=== PATIENT | female | born 1990 ===

== ENCOUNTER 2024-02-23 05:10 | Day surgery (SDC) | payer OTHER ==
[2024-02-15 15:00] VITALS: BP 109/75
[~2024-02-23] VITALS: Ht 154.9 cm; Wt 74.8 kg
[~2024-02-23 05:10] MED LIST: MIRALAX17 GM PO; MULTIPLE VITAM1 EAC2 PO; PROBIOTIC250 MG PO
[2024-02-23] MEDS ORDERED: TRAM1TAB98 PO (09:37)
[2024-02-23] MEDS ORDERED: NEURONTIN300 MG PO (09:37)
[2024-02-23] MEDS ORDERED: COLACE100 MG PO (09:38)
[2024-02-23] MEDS ORDERED: PIPERACILLIN/TAZOBACTAM SODIUM 3.375 GM VIAL IV ONE ×2 (10:30)
[2024-02-23] MEDS ORDERED: DIBUCAINE 30 GM TUBE RECTAL ONE (10:30)
[2024-02-23] MEDS ORDERED: LIDOCAINE HCL 1%/EPINEPHRINE 20ML VIAL IJ ONE (10:30)
[2024-02-23] MEDS ORDERED: BUPIVACAINE HCL 30 ML VIAL IJ ONE (10:30)
[2024-02-23] MEDS ORDERED: POVIDONE-IODINE 118 ML BOTT TOP ONE (10:30)
== END 2024-02-23 14:15 | disposition home or self-care (01) ==
LOC: CIR.AMB 05:10
PROVIDERS: ATTEND Surgery
DX: K60.3 Anal fistula (principal); K62.89 Other specified diseases of anus and rectum

== ENCOUNTER 2024-06-28 06:25 | Day surgery (SDC) | payer OTHER ==
[2024-06-21 14:01] VITALS: BP 118/80
[~2024-06-28] VITALS: Ht 154.9 cm; Wt 76.7 kg
[~2024-06-28 06:25] MED LIST changes: +COLACE100 MG PO; +NEURONTIN300 MG PO; +SPRINTEC 28 DA1 EACH PO; +TRAM1TAB98 PO
[2024-06-28] MEDS ORDERED: LIDOCAINE HCL 1%/EPINEPHRINE 20ML VIAL IJ ONE ×2 (10:33→16:34)
[2024-06-28] MEDS ORDERED: DIBUCAINE 30 GM TUBE ONE (10:33)
[2024-06-28] MEDS ORDERED: HEMOSTATIC MATRIX 1 KIT KIT TOP ONE (10:33)
[2024-06-28] MEDS ORDERED: POVIDONE-IODINE 118 ML BOTT TOP ONE (10:33)
[2024-06-28] MEDS ORDERED: BUPIVACAINE HCL/Mpf 0.5% 10ML VIAL ONE ×2 (10:33→16:33)
[2024-06-28] MEDS ORDERED: CEFTRIAXONE SODIUM 2,000 MG VIAL ONE (10:58)
[2024-06-28] MEDS ORDERED: METRONIDAZOLE/SODIUM CHLORIDE 500 MG/100 ML PIGGYBACK IV ONE (10:58)
[2024-06-28] MEDS ORDERED: COLACE100 MG PO (17:45)
[2024-06-28] MEDS ORDERED: TRAM1TAB98 PO (17:45)
[2024-06-28] MEDS ORDERED: NEURONTIN300 MG PO (17:45)
== END 2024-06-28 21:05 | disposition home or self-care (01) ==
LOC: CIR.AMB 06:25
PROVIDERS: ATTEND Surgery
DX: K60.30 Anal fistula, unspecified (principal); K62.89 Other specified diseases of anus and rectum; K60.1 Chronic anal fissure; K64.4 Residual hemorrhoidal skin tags; K62.5 Hemorrhage of anus and rectum; Z88.6 Allergy status to analgesic agent; J45.909 Unspecified asthma, uncomplicated